=== PATIENT | female | born 1980 | race Caucasian/White ===

== ENCOUNTER 2017-04-11 11:40 | Emergency (ER) | payer BC ==
[~2017-04-11] VITALS: Ht 165.1 cm; Wt 59.0 kg
[2017-04-11 11:48] VITALS: Ht 165.1 cm; Wt 59.0 kg
[2017-04-11 13:42] VITALS: BP 120/64
== END 2017-04-11 13:42 | disposition home or self-care (01) ==
LOC: ED 11:40
DX: M54.5 Low back pain (principal)

== ENCOUNTER 2019-02-04 10:27 | Emergency (ER) | payer BC ==
[~2019-02-04] VITALS: Ht 152.4 cm; Wt 59.4 kg
[2019-02-04 10:33] VITALS: Ht 152.4 cm; Wt 59.4 kg
[2019-02-04 11:12] LABS: BASOPHIL % 0.6 % (0-2); PLATELET COUNT 310 x10^3mcL (130-400); RED CELL DISTRIBUTION WIDTH 12.8 % (11.5-14.5)
[2019-02-04 11:12] LABS: UA SPECIFIC GRAVITY 1.025 (1.005-1.035); microscopic required? YES; urine erythrocyte NEGATIVE (NEGATIVE)
[2019-02-04 11:22] LABS: CALCIUM 8.5 mg/dL (8.5-10.1); CARBON DIOXIDE 29.3 mmol/L (21-32); CHLORIDE SERUM 105 mmol/L (98-107); CREATININE SERUM 0.6 mg/dL (0.6-1.0); GFR1 > 60 mL/min; GLUCOSE SERUM 105 mg/dL (74-106); POTASSIUM SERUM 4.1 mmol/L (3.5-5.1); SODIUM SERUM 142 mmol/L (136-145)
[2019-02-04 11:26] LABS: ALBUMIN 3.9 g/dL (3.4-5.0); ALKALINE PHOSPHATASE 44 U/L (46-116); ALT/SGPT 24 U/L (14-59); AST/SGOT 6 U/L (15-37); BILIRUBIN TOTAL 0.49 mg/dL (0.20-1.00); CHOLESTEROL 177 mg/dL (<200); TOTAL PROTEIN, SERUM 7.2 g/dL (6.4-8.2); TRIGLYCERIDES 46 mg/dL (<150)
[2019-02-04 11:27] LABS: CHOLESTEROL/HDL RATIO 2.7; HDL CHOLESTEROL 66 mg/dL (40-60)
[2019-02-04 14:30] VITALS: BP 102/66
== END 2019-02-04 14:30 | disposition home or self-care (01) ==
LOC: ED 10:27
PROVIDERS: Specialist
DX: R10.13 Epigastric pain (principal); G89.29 Other chronic pain; M54.9 Dorsalgia, unspecified
CPT/HCPCS: 36415; Q0092